=== PATIENT | male | born 1995 | race Caucasian/White ===

== ENCOUNTER 2020-02-13 19:30 | Emergency (ER) | payer MEDICAID ==
--- NOTE | 2020-02-13 20:42 | EDM.PDOC ---
ED HPI GENERAL MEDICAL PROBLEM - General Chief Complaint: ENT Problem Stated Complaint: TOOTH PAIN Time Seen by Provider: 02/13/20 20:30 Source of Information: Reports: Patient, RN History Limitations: Reports: No Limitations - History of Present Illness INITIAL COMMENTS - FREE TEXT/NARRATIVE: 24 yo male here with about 60 hrs of dental pain to the R posterior most molar after the tooth broke off. He called his dentist this past Friday and has an appt for this coming Friday. No fever, but feels like there is some early swelling of his L face. Onset: Gradual Onset Date: 02/11/20 Duration: Day(s): (2+), Getting Worse Location: Reports: Face (R side of mouth) Quality: Reports: Ache Severity: Moderate Improves with: Reports: Medication Worsens with: Reports: Other (time) Context: Reports: Other (see HPI) Associated Symptoms: Reports: No Other Symptoms. 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) - Related Data Allergies Allergy/AdvReac Type Severity Reaction Status Date / Time Penicillins Allergy Difficulty Verified 02/13/20 20:05 Breathing Home Meds: Home Meds Metoprolol Succinate [Toprol XL 50mg] 02/13/20 [History] hydrOXYzine HCL [hydrOXYzine] 02/13/20 [History] Past Medical History Cardiovascular History: Reports: Hypertension Psychiatric History: Reports: Anxiety Social & Family History - Tobacco Use Smoking Status *Q: Never Smoker ED ROS ENT - Review of Systems Review Of Systems: See Below Constitutional: Reports: No Symptoms HEENT: Reports: Dental Pain Respiratory: Reports: No Symptoms Cardiovascular: Reports: No Symptoms GI/Abdominal: Reports: No Symptoms Skin: Reports: No Symptoms Neurological: Reports: No Symptoms ED EXAM, ENT - Physical Exam Exam: See Below Exam Limited By: No Limitations General Appearance: Alert, WD/WN, No Apparent Distress Eye Exam: Bilateral Eye: EOMI, PERRL Ears: Normal External Exam, Normal Canal, Hearing Grossly Normal Nose: Normal Inspection, No Blood Mouth/Throat: Normal Inspection, Normal Lips, Normal Oropharynx, Dental Pain (R posterior/mandibular molar is broken in half with visible decay present.) Head: Atraumatic, Normocephalic Neck: Normal Inspection, Supple, Non-Tender. No: Lymphadenopathy (R), Lymphadenopathy (L) Respiratory/Chest: No Respiratory Distress, Lungs Clear, Normal Breath Sounds, No Accessory Muscle Use Cardiovascular: Regular Rate, Rhythm Course - Vital Signs Last Recorded V/S: Last Vital Signs Temp 36.5 C 02/13/20 20:09 Pulse 59 L 02/13/20 20:09 Resp 14 02/13/20 20:09 BP 144/86 H 02/13/20 20:09 Pulse Ox 98 02/13/20 20:09 Departure - Departure Time of Disposition: 20:42 Disposition: Home, Self-Care 01 Condition: Fair Clinical Impression: Dental infection - Discharge Information *PRESCRIPTION DRUG MONITORING PROGRAM REVIEWED*: No *COPY OF PRESCRIPTION DRUG MONITORING REPORT IN PATIENT ERICKA: No Instructions: Dental Abscess, [id number] Referrals: PCP,None [Primary Care Provider] - Additional Instructions: Take clindamycin as directed for infection. Take ibuprofen 600 mg every 6 hrs with food for pain relief. Add either acetaminophen or [place] for added relief. See your dentist for definitive care BUBBA. Sepsis Event Note - Evaluation Sepsis Screening Result: No Definite Risk - Focused Exam Vital Signs: Vital Signs Temp Pulse Resp BP Pulse Ox 02/13/20 20:09 36.5 C 59 L 14 144/86 H 98 Date Exam was Performed: 02/13/20 Time Exam was Performed: 20:37
== END 2020-02-13 21:03 | disposition home or self-care (01) ==
LOC: JP.ED 19:30
DX: K04.7 Periapical abscess without sinus (principal); Z88.0 Allergy status to penicillin; Z79.899 Other long term (current) drug therapy
CPT/HCPCS: 99282; 99283

== ENCOUNTER 2020-02-19 19:46 | Emergency (ER) | payer MEDICAID ==
[2020-02-19] MEDS ORDERED: HYDROmorphone 1 MG/ML Syringe IM ONE (20:58)
--- NOTE | 2020-02-19 21:11 | EDM.PDOC ---
ED HPI GENERAL MEDICAL PROBLEM - General Chief Complaint: ENT Problem Stated Complaint: TOOTHACHE Time Seen by Provider: 02/19/20 19:58 Source of Information: Reports: Patient History Limitations: Reports: No Limitations - History of Present Illness INITIAL COMMENTS - FREE TEXT/NARRATIVE: chief complaint: dental pain This is a 24 year old man here for second visit for dental pain. He reports had an appointment for Friday, but this was cancelled due to overbooking. His dental insurance is not accepted at local dental clinic. Report not able to eat or drink fluids due to the pain. 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, NSAIDS, Other Medication(s) bottom dental pain right side Pain Score (Numeric/FACES): 9 - Related Data Allergies Allergy/AdvReac Type Severity Reaction Status Date / Time Penicillins Allergy Difficulty Verified 02/19/20 20:29 Breathing Home Meds: Home Meds Metoprolol Succinate [Toprol XL 50mg] 50 mg PO DAILY 02/13/20 [History] hydrOXYzine HCL [hydrOXYzine] 25 mg PO ASDIRECTED PRN 02/13/20 [History] Past Medical History HEENT History: Reports: Other (See Below) Other HEENT History: upper teeth removed, upper dentures Cardiovascular History: Reports: Hypertension Psychiatric History: Reports: Anxiety - Infectious Disease History Infectious Disease History: Reports: Chicken Pox Social & Family History - Tobacco Use Smoking Status *Q: Never Smoker - Caffeine Use Caffeine Use: Reports: None - Recreational Drug Use Recreational Drug Use: No ED ROS ENT - Review of Systems Review Of Systems: See Below Constitutional: Reports: Other (dental ) HEENT: Reports: Dental Pain Respiratory: Reports: No Symptoms Cardiovascular: Reports: No Symptoms Skin: Reports: No Symptoms Neurological: Reports: No Symptoms Immunologic: Reports: No Symptoms ED EXAM, ENT - Physical Exam Exam: See Below Exam Limited By: No Limitations General Appearance: Alert, Moderate Distress (sitting holding right side of face in hands, mild rocking back and forth.) Eye Exam: Bilateral Eye: PERRL Ears: Normal External Exam Mouth/Throat: Dental Pain (tooth #17), Dental Tenderness, Other (molar with half of tooth missing, tender to touch.) Head: Atraumatic, Normocephalic Neck: Normal Inspection, Supple, Non-Tender Respiratory/Chest: No Respiratory Distress, Lungs Clear Cardiovascular: Regular Rate, Rhythm, No Murmur Skin: Warm, Dry, Intact, Normal Color, No Rash Lymphatic: No Adenopathy Course - Vital Signs Last Recorded V/S: Last Vital Signs Temp 36.4 C 02/19/20 21:04 Pulse 71 02/19/20 21:04 Resp 17 02/19/20 21:04 BP 146/85 H 02/19/20 21:04 Pulse Ox 97 02/19/20 21:04 - Orders/Labs/Meds Meds: Medications Discontinued Medications Generic Name Dose Route Start Last Admin Trade Name Freq PRN Reason Stop Dose Admin Hydromorphone HCl 1 mg 02/19/20 20:58 Dilaudid IM 02/19/20 20:59 ONETIME ONE - Re-Assessments/Exams Free Text/Narrative Re-Assessment/Exam: 02/19/20 21:11 offered IM pain medication- declines due to transportation. will give narcotic pain medication advise to call on Friday for Dental Appointment Departure - Departure Time of Disposition: 21:12 Disposition: Home, Self-Care 01 Condition: Good Clinical Impression: Dental infection, Fracture of tooth - Discharge Information *PRESCRIPTION DRUG MONITORING PROGRAM REVIEWED*: No *COPY OF PRESCRIPTION DRUG MONITORING REPORT IN PATIENT ERICKA: No Referrals: PCP,None [Primary Care Provider] - Care Plan Goals: Dental pain -Hydrocodone 5-325mg take one every 4 hours as needed for pain #12 -continue Motrin as directed -soft diet- avoid hot or cold foods -make appointment with Dental Clinic on Friday Return to ER if has fever, chills, nausea, vomiting, facial swelling, not improved or any concerns. Sepsis Event Note - Evaluation Sepsis Screening Result: No Definite Risk - Focused Exam Vital Signs: Vital Signs Temp Pulse Resp BP Pulse Ox 02/19/20 21:04 36.4 C 71 17 146/85 H 97 02/19/20 20:30 36.4 C 71 17 146/85 H 97 Date Exam was Performed: 02/19/20 Time Exam was Performed: 21:05 - Problem List & Annotations (1) Dental caries extending into pulp SNOMED Code(s): 369362154 Code(s): K02.9 - DENTAL CARIES, UNSPECIFIED Status: Acute Priority: High Current Visit: Yes (2) Dental infection SNOMED Code(s): 722448206 Code(s): K04.7 - PERIAPICAL ABSCESS WITHOUT SINUS Status: Acute Current Visit: Yes - Problem List Review Problem List Initiated/Reviewed/Updated: Yes - Assessment/Plan Plan: Dental pain -Hydrocodone 5-325mg take one every 4 hours as needed for pain #12 -continue Motrin as directed -soft diet- avoid hot or cold foods -make appointment with Dental Clinic on Friday Return to ER if has fever, chills, nausea, vomiting, facial swelling, not improved or any concerns.
== END 2020-02-19 21:23 | disposition home or self-care (01) ==
LOC: JP.ED 19:46
DX: K04.7 Periapical abscess without sinus (principal); K03.81 Cracked tooth; I10 Essential (primary) hypertension; F41.9 Anxiety disorder, unspecified; Z88.0 Allergy status to penicillin; Z79.899 Other long term (current) drug therapy
CPT/HCPCS: 99282; 99283

== ENCOUNTER 2020-02-25 21:06 | Emergency (ER) | payer MEDICAID ==
[2020-02-25] MEDS ORDERED: Ketorolac 60 MG/2 ML SDV IM ONE (21:32)
--- NOTE | 2020-02-25 21:33 | EDM.PDOC ---
ED HPI GENERAL MEDICAL PROBLEM - General Chief Complaint: ENT Problem Stated Complaint: TOOTHACHE Time Seen by Provider: 02/25/20 21:25 Source of Information: Reports: Patient History Limitations: Reports: No Limitations - History of Present Illness INITIAL COMMENTS - FREE TEXT/NARRATIVE: Omar presents today for complaints of dental pain to right molar. He states the pain comes and goes. He has a pending dental appointment March 07, 2020. He denies any new injury or damaged teeth. He denies fever, chills, nausea, vomiting or other concerns. 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 Right Lower Jaw Pain Score (Numeric/FACES): 9 - Related Data Allergies Allergy/AdvReac Type Severity Reaction Status Date / Time Penicillins Allergy Difficulty Verified 02/25/20 21:17 Breathing Home Meds: Home Meds Metoprolol Succinate [Toprol XL 50mg] 50 mg PO DAILY 02/13/20 [History] hydrOXYzine HCL [hydrOXYzine] 25 mg PO ASDIRECTED PRN 02/13/20 [History] Past Medical History HEENT History: Reports: Other (See Below) Other HEENT History: upper teeth removed, upper dentures Cardiovascular History: Reports: Hypertension Psychiatric History: Reports: Anxiety - Infectious Disease History Infectious Disease History: Reports: Chicken Pox Social & Family History - Tobacco Use Smoking Status *Q: Former Smoker Used Tobacco, but Quit: Yes Month/Year Tobacco Last Used: 10/2018 - Caffeine Use Caffeine Use: Reports: None - Recreational Drug Use Recreational Drug Use: Yes Drug Use in Last 12 Months: No Recreational Drug Type: Reports: Marijuana/Hashish ED ROS ENT - Review of Systems Review Of Systems: See Below Constitutional: Reports: No Symptoms HEENT: Reports: Dental Pain Respiratory: Reports: No Symptoms Cardiovascular: Reports: No Symptoms GI/Abdominal: Reports: No Symptoms Musculoskeletal: Reports: No Symptoms Skin: Reports: No Symptoms Neurological: Reports: No Symptoms Psychiatric: Reports: No Symptoms Hematologic/Lymphatic: Reports: No Symptoms Immunologic: Reports: No Symptoms ED EXAM, ENT - Physical Exam Exam: See Below Exam Limited By: No Limitations General Appearance: Alert, WD/WN, No Apparent Distress Eye Exam: Bilateral Eye: Normal Inspection Ears: Normal External Exam, Normal Canal, Hearing Grossly Normal, Normal TMs Nose: Normal Inspection, Normal Mucousa, No Blood Mouth/Throat: Normal Lips, Dental Pain, Gum Swelling, Other (partial of #32 missing. Slight erythema to gum line. ). No: Normal Gums, Normal Teeth, Muffled Voice, Throat Swelling, Tongue Swelling, Tonsillar Erythema, Tonsillar Exudates, Tonsillar Swelling, Uvular Deviation, Uvular Edema Head: Atraumatic, Normocephalic Neck: Normal Inspection, Supple, Non-Tender, Full Range of Motion. No: Lymphadenopathy (R), Lymphadenopathy (L) Respiratory/Chest: No Respiratory Distress, Lungs Clear, Normal Breath Sounds, No Accessory Muscle Use, Chest Non-Tender Cardiovascular: Normal Peripheral Pulses, Regular Rate, Rhythm, No Edema, No Gallop, No Murmur Extremities: Normal Inspection, Normal Range of Motion, Non-Tender, No Pedal Edema, Normal Capillary Refill Neurological: Alert, Oriented, Normal Cognition, Normal Gait, No Motor/Sensory Deficits Psychiatric: Normal Affect, Normal Mood Skin: Warm, Dry, Intact, Normal Color, No Rash Course - Vital Signs Last Recorded V/S: Last Vital Signs Temp 36.1 C 02/25/20 21: Pulse 65 02/25/20 21:19 Resp 16 02/25/20 21:19 BP 156/99 H 02/25/20 21:19 Pulse Ox 98 02/25/20 21:19 - Orders/Labs/Meds Meds: Medications Discontinued Medications Generic Name Dose Route Start Last Admin Trade Name Devanq PRN Reason Stop Dose Admin Acetaminophen 1,000 mg 02/25/20 21:37 02/25/20 21:46 Tylenol Extra Strength PO 02/25/20 21:38 1,000 mg ONETIME ONE Administration Diphenhydramine HCl 50 mg 02/25/20 21:37 02/25/20 21:46 Benadryl PO 02/25/20 21:38 50 mg ONETIME ONE Administration Ketorolac Tromethamine 60 mg 02/25/20 21:32 02/25/20 21:48 Toradol IM 02/25/20 21:33 Not Given ONETIME ONE - Re-Assessments/Exams Free Text/Narrative Re-Assessment/Exam: Patient offered toradol injection, he declined. Departure - Departure Time of Disposition: 21:40 Disposition: Home, Self-Care 01 Condition: Good Clinical Impression: Dental caries, Pain, dental, Dental abscess - Discharge Information *PRESCRIPTION DRUG MONITORING PROGRAM REVIEWED*: Yes *COPY OF PRESCRIPTION DRUG MONITORING REPORT IN PATIENT ERICKA: No Instructions: Dental Abscess, [id number] Referrals: PCP,None [Primary Care Provider] - Forms: ED Department Discharge Additional Instructions: Drink plenty of fluids to stay hydrated. Start use of penicillin as directed. Take diclofenac 50mg by mouth three times a day for pain. Eat food with this medication as it can be hard on your stomach. Take tylenol 1000mg by mouth three times a day for pain. You can take benadryl 50mg by mouth at bedtime to help you sleep. Follow up with dental clinic as soon as possible. Sepsis Event Note - Evaluation Sepsis Screening Result: No Definite Risk - Focused Exam Vital Signs: Vital Signs Temp Pulse Resp BP Pulse Ox 02/25/20 21:19 36.1 C 65 16 156/99 H 98 02/25/20 21:17 36.1 C 65 16 156/99 H 98 Date Exam was Performed: 02/25/20 Time Exam was Performed: 22:10 - Assessment/Plan Assessment:: Dental caries, Pain, dental, Dental abscess Plan: Drink plenty of fluids to stay hydrated. Start use of penicillin as directed. Take diclofenac 50mg by mouth three times a day for pain. Eat food with this medication as it can be hard on your stomach. Take tylenol 1000mg by mouth three times a day for pain. You can take benadryl 50mg by mouth at bedtime to help you sleep. Follow up with dental clinic as soon as possible.
[2020-02-25] MEDS ORDERED: diphenhydrAMINE 25 MG Cap PO ONE (21:37)
[2020-02-25] MEDS ORDERED: Acetaminophen 500 MG Tab PO ONE (21:37)
== END 2020-02-25 21:57 | disposition home or self-care (01) ==
LOC: JP.ED 21:06
DX: K04.7 Periapical abscess without sinus (principal); K02.9 Dental caries, unspecified; I10 Essential (primary) hypertension; Z79.899 Other long term (current) drug therapy; Z87.891 Personal history of nicotine dependence; Z88.0 Allergy status to penicillin
CPT/HCPCS: 99282; A9270; 99283

== ENCOUNTER 2020-04-24 13:58 | Emergency (ER) | payer MEDICAID | END 2020-04-24 14:13 | disposition left against medical advice (07) | LOC: JP.ED 13:58 | DX: Z53.21 Procedure and treatment not carried out due to patient leaving prior to being seen by health care provider (principal) ==

== ENCOUNTER 2020-07-19 12:26 | Emergency (ER) | payer MEDICAID ==
--- NOTE | 2020-07-19 13:03 | EDM.PDOC ---
ED HPI GENERAL MEDICAL PROBLEM - General Chief Complaint: General Stated Complaint: TOOTHACHE LEFT SIDE Time Seen by Provider: 07/19/20 12:50 Source of Information: Reports: Patient, Old Records, RN History Limitations: Reports: No Limitations - History of Present Illness INITIAL COMMENTS - FREE TEXT/NARRATIVE: 24 yo male here with dental pain. No fever. Recently completed a course of PCN. Has an appt for Friday with his dentist. Called his primary care provider's office and they had no openings and woudn't prescribe without seeing him. Works here in [place], but lives in [place]. Onset: Gradual Duration: Day(s):, Getting Worse Location: Reports: Face (L side) Quality: Reports: Ache Severity: Severe Improves with: Reports: Medication Worsens with: Reports: Other (infection) Context: Reports: Other (See HPI) Associated Symptoms: Reports: No Other Symptoms. 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) Left Lower Jaw Pain Score (Numeric/FACES): 8 - Related Data Allergies Allergy/AdvReac Type Severity Reaction Status Date / Time Penicillins Allergy Difficulty Verified 07/19/20 12:37 Breathing Home Meds: Home Meds Metoprolol Succinate [Toprol XL 50mg] 50 mg PO DAILY 02/13/20 [History] hydrOXYzine HCL [hydrOXYzine] 25 mg PO ASDIRECTED PRN 02/13/20 [History] Acetaminophen/HYDROcodone [[place] 325-5 MG] 1 - 2 tab PO Q6H PRN #10 tab 07/19/20 [Rx] Penicillin V Potassium 500 mg PO Q8HR #20 tab 07/19/20 [Rx] Past Medical History HEENT History: Reports: Other (See Below) Other HEENT History: upper teeth removed, upper dentures Cardiovascular History: Reports: Hypertension Musculoskeletal History: Reports: None Neurological History: Reports: Concussion Psychiatric History: Reports: Anxiety Endocrine/Metabolic History: Reports: Obesity/BMI 30+ - Infectious Disease History Infectious Disease History: Reports: Chicken Pox - Past Surgical History Head Surgeries/Procedures: Reports: None HEENT Surgical History: Reports: None Cardiovascular Surgical History: Reports: None Endocrine Surgical History: Reports: None Neurological Surgical History: Reports: None Musculoskeletal Surgical History: Reports: Shoulder Surgery Social & Family History - Tobacco Use Tobacco Use Status *Q: Former Tobacco User Used Tobacco, but Quit: Yes Month/Year Tobacco Last Used: 2017 Second Hand Smoke Exposure: No - Caffeine Use Caffeine Use: Reports: None - Recreational Drug Use Recreational Drug Use: No ED ROS GENERAL - Review of Systems Review Of Systems: See Below Constitutional: Reports: No Symptoms HEENT: Reports: Dental Pain Respiratory: Reports: No Symptoms GI/Abdominal: Reports: No Symptoms Skin: Reports: No Symptoms Neurological: Reports: No Symptoms ED EXAM, GENERAL - Physical Exam Exam: See Below Exam Limited By: No Limitations General Appearance: Alert, WD/WN, Mild Distress Eye Exam: Bilateral Eye: Normal Inspection Ears: Normal External Exam, Normal Canal, Hearing Grossly Normal Ear Exam: Bilateral Ear: Auricle Normal, Canal Normal Nose: Normal Inspection, No Blood Throat/Mouth: Normal Inspection, Normal Lips, Normal Oropharynx, Normal Voice. No: Normal Teeth (molars on L side with considerable decay, tender to touch. No facial swelling. ) Head: Atraumatic, Normocephalic Neck: Normal Inspection. No: Lymphadenopathy (R), Lymphadenopathy (L) Respiratory/Chest: No Respiratory Distress, Lungs Clear, Normal Breath Sounds, No Accessory Muscle Use Cardiovascular: Regular Rate, Rhythm Neurological: Alert, Oriented, CN II-XII Intact, Normal Cognition, No Motor/Sensory Deficits Skin Exam: Warm, Dry, Intact, Normal Color, No Rash Course - Vital Signs Last Recorded V/S: Last Vital Signs Temp 35.9 C L 07/19/20 12:40 Pulse 71 07/19/20 12:40 Resp 16 07/19/20 12:40 BP 141/86 H 07/19/20 12:40 Pulse Ox 98 07/19/20 12:40 Departure - Departure Time of Disposition: 13:02 Disposition: Home, Self-Care 01 Condition: Fair Clinical Impression: Pain, dental - Discharge Information *PRESCRIPTION DRUG MONITORING PROGRAM REVIEWED*: Yes *COPY OF PRESCRIPTION DRUG MONITORING REPORT IN PATIENT ERICKA: Yes Prescriptions: Acetaminophen/HYDROcodone [[place] 325-5 MG] 1 - 2 tab PO Q6H PRN #10 tab PRN Reason: Pain Penicillin V Potassium 500 mg PO Q8HR #20 tab Referrals: PCP,None [Primary Care Provider] - Additional Instructions: Use prescriptions as directed. Add ibuprofen 600 mg every 6 hrs with food for added relief. Keep your dental appt as scheduled. Sepsis Event Note (ED) - Evaluation Sepsis Screening Result: No Definite Risk - Focused Exam Vital Signs: Vital Signs Temp Pulse Resp BP Pulse Ox 07/19/20 12:40 35.9 C L 71 16 141/86 H 98 07/19/20 12:39 35.9 C L 71 16 141/86 H 98
== END 2020-07-19 13:10 | disposition home or self-care (01) ==
LOC: JP.ED 12:26
DX: K02.9 Dental caries, unspecified (principal); I10 Essential (primary) hypertension; E66.9 Obesity, unspecified; Z87.891 Personal history of nicotine dependence; Z68.39 Body mass index [BMI] 39.0-39.9, adult; Z88.0 Allergy status to penicillin
CPT/HCPCS: 99282

== ENCOUNTER 2023-06-19 15:42 | Emergency (ER) | payer MEDICAID ==
[2023-06-19] MEDS ORDERED: diphenhydrAMINE 50 MG/ML SDV IVPUSH ONE (15:56)
[2023-06-19] MEDS ORDERED: methylPREDNISolone Sodium Succinate 125 MG/2 ML SDV IVPUSH ONE (15:58)
[2023-06-19] MEDS ORDERED: EPINEPHrine 1 MG/ML SDV SUBCUT ONE (15:59)
[2023-06-19] MEDS ORDERED: Sodium Chloride 0.9% 1,000 ML IV SCH (16:00)
== END 2023-06-19 17:25 | disposition home or self-care (01) ==
LOC: JP.ED 15:42
DX: T63.441A Toxic effect of venom of bees, accidental (unintentional), initial encounter (principal); I10 Essential (primary) hypertension; E66.9 Obesity, unspecified; F17.210 Nicotine dependence, cigarettes, uncomplicated; Z68.41 Body mass index [BMI] 40.0-44.9, adult; Z86.16 Personal history of COVID-19; Z88.0 Allergy status to penicillin
CPT/HCPCS: 96361; 96372; 96374; 96375; 99282-25; 99283; J0171; J1200; J2930; J7030